=== PATIENT | male | born 1975 | race Two or more races ===

== ENCOUNTER 2017-03-18 06:28 | Day surgery (SDC) | payer OTHER ==
[~2017-03-18] VITALS: Ht 172.7 cm; Wt 88.5 kg
[2017-03-18] VITALS (12 sets, daily range): BP systolic 111–125; BP diastolic 63–75
[~2017-03-18 06:28] MED LIST: LEVOTHYROXINE25 MCG ORAL; ceFAZolin 1gm in D5W 55ml IVP ONE; celeBREX 200mg Cap **SURGERY PATIENTS ONLY ORAL ONE; oxyCONTIN 20mg tab ORAL ONE
[2017-03-18] MEDS ORDERED: celeBREX 200mg Cap **SURGERY PATIENTS ONLY ORAL ONE (07:17)
--- NOTE | 2017-03-18 07:24 | Operative Note - PDOC ---
Operative Note Operative Note Pre-op Diagnosis: right shoulder rct, impingement Procedure: right shoulder arthrscopy Post-op Diagnosis: same as pre-op plus Operative Findings: consistent w/pre-op dx studies Anesthesia: MAC Specimen: none Complications: none Condition: stable Estimated Blood Loss: none Implant(s) used?: No ZO HANNON March 18, 2017 07:24
--- NOTE | 2017-03-18 07:24 | Pre-Procedure Note/Attestation ---
Pre-Procedure Note/Attestation Complete Prior to Procedure Planned Procedure: right Procedure Narrative: shoulder arthrscopy, possible rct repair, sad Indications for Procedure Pre-Operative Diagnosis: right shoulder rct, impingement Attestation I attest that I discussed the nature of the procedure; its benefits; risks and complications; and alternatives (and the risks and benefits of such alternatives ), prior to the procedure, with the patient (or the patient's legal hospital insurance representative). I attest that, if there was a reasonable possibility of needing a blood transfusion, the patient (or the patient's legal hospital insurance representative) was given the [facility] standardized written summary, pursuant to the Eliot Ralf Blood Safety Act ([place] Health and Safety Code # 1645, as amended). I attest that I re-evaluated the patient just prior to the surgery and that there has been no change in the patient's H&P, except as documented below: ZO HANNON March 18, 2017 07:24
[2017-03-18] MEDS ORDERED: HYDROmorphone 1mg/ml Carpuject SUBQ PRN (07:30)
[2017-03-18] MEDS ORDERED: Norco 5mg/325mg tab ORAL PRN ×2 (07:30→09:15)
[2017-03-18] MEDS ORDERED: D5 1/2NS 1,000 ML IV SCH (07:30)
[2017-03-18] MEDS ORDERED: Tylenol #3 tab (300mg/30mg) ORAL PRN (07:30)
[2017-03-18] MEDS ORDERED: NS Irrig 1000ml ONE (08:00)
[2017-03-18] MEDS ORDERED: Propofol 10mg/ml 20ml IV ONE (08:00)
[2017-03-18] MEDS ORDERED: Lidocaine 1% MPF 10mg/ml 5ml ONE (08:00)
[2017-03-18] MEDS ORDERED: Alfentanil 2ml Inj ONE (08:00)
[2017-03-18] MEDS ORDERED: Dexamethasone 4mg/ml vial ONE (08:00)
[2017-03-18] MEDS ORDERED: LR 1000ml ONE (08:00)
[2017-03-18] MEDS ORDERED: Ketorolac 30mg Inj ONE (08:00)
[2017-03-18] MEDS ORDERED: Midazolam 2mg/2ml Inj ONE (08:00)
[2017-03-18] MEDS ORDERED: Ropivacaine 5mg/ml Vial 20ml INJ ONE (08:09)
[2017-03-18] MEDS ORDERED: EPINEPHrine 1mg/1ml Amp ONE (08:25)
[2017-03-18] MEDS ORDERED: Bupivacaine w/Epi 0.25% 30ml Vial INJ ONE (08:25)
[2017-03-18] MEDS ORDERED: LR 1000ml 1,000 ML IVLG SCH (09:04)
--- NOTE | 2017-03-18 09:10 | Anethesia Preoperative Eval ---
Anesthesia Pre-op PMH/ROS General Date of Evaluation: March 18, 2017 Time of Evaluation: 08:14 Anesthesiologist: Mikhail ASA Score: ASA 2 Mallampati Score Class I : Soft palate, uvula, fauces, pillars visible Class II: Soft palate, uvula, fauces visible Class III: Soft palate, base of uvula visible Class IV: Only hard plate visible Mallampati Classification: Class II Surgeon: Yung Diagnosis: R Shoulder Pain Surgical Procedure: R Shoulder Arthroscopy Anesthesia History: none Family History: no anesthesia problems Allergies: Coded Allergies: No Known Allergies (Unverified , 03/17/17) Medications: see eMAR Past Medical History Endocrine: Reports: hypothyroidism Other: obesity - BMI 30 Anesthesia Pre-op Phys. Exam Physician Exam Last Vital Signs Date Time Temp Pulse Resp B/P Pulse Ox O2 Delivery O2 Flow Rate FiO2 03/18/17 06:54 97.2 52 20 119/73 99 Room Air Constitutional: NAD Neurologic: CN 2-12 intact Cardiovascular: RRR Respiratory: CTA Gastrointestinal: S/NT/ND Airway Exam Mallampati Score: Class II MO: full ROM: full Teeth: intact Anesthesia Pre-op A/P Risk Assessment & Plan Assessment: ASA 2 Plan: GA, BIS, R Supraclavicular Block Status Change Before Surgery: No Pre-Antibiotics Dru Gram Ancef IV Given Within 1 Hr of Incision: Yes Time Given: 07:26 Abdiel Elizondo MD March 18, 2017 09:10
--- NOTE | 2017-03-18 09:11 | Immediate Post-Op Evaluation ---
Immediate Post-Op Evalulation Immediate Post-Op Evalulation Procedure: R Shoulder Arthroscopy Date of Evaluation: March 18, 2017 Time of Evaluation: 09:34 IV Fluids: 500 LR Blood Products: 0 Estimated Blood Loss: 7 Urinary Output: 0 Blood Pressure Systolic: 125 Blood Pressure Diastolic: 75 Pulse Rate: 75 Respiratory Rate: 16 O2 Sat by Pulse Oximetry: 100 Temperature (Fahrenheit): 97 Pain Score (1-10): 1 Nausea: No Vomiting: No Complications 0 Patient Status: awake, reacts, patent, none Hydration Status: adequate Dru Gram Ancef IV Given Within 1 Hr of Incision: Yes Time Given: 07:26 Abdiel Elizondo MD March 18, 2017 09:11
[2017-03-18] MEDS ORDERED: DiphenhydrAMINE 50mg/ml Inj IVP PRN (09:15)
[2017-03-18] MEDS ORDERED: Hydromorphone 0.5mg/0.5ml inj IVP PRN (09:15)
[2017-03-18] MEDS ORDERED: Midazolam 2mg/2ml Inj IVP PRN (09:15)
[2017-03-18] MEDS ORDERED: LORazepam Inj 2mg/ml 1ml IV PRN (09:15)
[2017-03-18] MEDS ORDERED: Atropine Inj 1mg/10ml Syr IV PRN (09:15)
[2017-03-18] MEDS ORDERED: Ketorolac 60mg Inj IV PRN (09:15)
[2017-03-18] MEDS ORDERED: Meperidine 25mg/0.5ml Inj IV PRN (09:15)
[2017-03-18] MEDS ORDERED: Norco 7.5mg/325mg tab ORAL PRN (09:15)
[2017-03-18] MEDS ORDERED: Metoclopramide 10mg/2ml Inj IVP PRN (09:15)
[2017-03-18] MEDS ORDERED: fentaNYL 100 mcg/2 mL IV PRN (09:15)
[2017-03-18] MEDS ORDERED: Oxycodone/Acetaminophen 5-325 ORAL PRN (09:15)
[2017-03-18] MEDS ORDERED: Ketorolac 30mg Inj IV PRN (09:15)
--- NOTE | 2017-03-18 09:25 | 48 Hour Post Anesthesia Eval ---
Post Anesthesia Evaluation Procedure: R Shoulder Arthroscopy Date of Evaluation: March 18, 2017 Time of Evaluation: 09:34 Blood Pressure Systolic: 117 0: 58 Pulse Rate: 61 Respiratory Rate: 16 Temperature (Fahrenheit): 98.2 O2 Sat by Pulse Oximetry: 100 Airway: patent Nausea: No Vomiting: No Pain Intensity: 1 Hydration Status: adequate Cardiopulmonary Status: Stable Mental Status/LOC: patient returned to baseline Follow-up Care/Observations: 0 Post-Anesthesia Complications: 0 Follow-up care needed: ready to discharge Abdiel Elizondo MD March 18, 2017 09:25
--- NOTE | 2017-03-18 13:17 | Operative Note - Dictated ---
DATE OF OPERATION: 03/18/2017 PREOPERATIVE DIAGNOSIS: 1. Right shoulder traumatic impingement syndrome. POSTOPERATIVE DIAGNOSIS: 1. Right shoulder traumatic impingement syndrome. PROCEDURES: 1. Right shoulder diagnostic arthroscopy. 2. Right shoulder subacromial decompression bursectomy with release of the coracoclavicular ligament. SURGEON: Mathieu Barragan M.D. ANESTHESIA: Interscalene with general. INDICATION FOR PROCEDURE: The patient is a pleasant 41-year-old gentleman, with progressive and continued right shoulder pain. He had evidence of impingement syndrome. He failed conservative treatment and elected to undergo right shoulder arthroscopy with subacromial decompression bursectomy. Risks, limitations, expectations and complications related to procedure were discussed in detail. All questions were addressed. DESCRIPTION OF PROCEDURE: An informed consent was obtained. The patient was brought to the operative room and placed under monitored interscalene and general anesthesia. The patient was then carefully placed in a beach-chair position. Right shoulder was prepped and draped in a sterile manner. Time-out was performed. Portal sites were injected with 0.25% Marcaine with epinephrine. Inferolateral stab incision then made. Trocar was introduced into the humeral joint. No significant chondral damage. The anterior ligament appeared intact while at the superior labral and rotator cuff, there was some tenderness along the rotator cuff, but no stephanie tear. The camera was then repositioned in the subacromial space. There was significant hypertrophic bursal tissue. Lateral working portal was established. Complete bursectomy was performed as soon as the acromion was identified. Chondroplasty was turned from lateral to medial and completed from posterior to anterior. Once that was done, the bursal side of the rotator cuff was evaluated and noted to be intact. At this point, the instruments removed. Portal sites were closed using 3-0 Monocryl sutures. Steri-Strips and a sterile dressing were applied. The patient was awoken and taken to recovery room with stable vital signs. ESTIMATED BLOOD LOSS: Minimal. COMPLICATIONS: None. SPECIMENS: None. IMPLANTS: None. Mathieu Barragan M.D. DR: Lianet JOB#: [id number] CC:
== END 2017-03-18 12:40 | disposition home or self-care (01) ==
LOC: SUR 06:28
DX: M75.41 Impingement syndrome of right shoulder (principal); E03.9 Hypothyroidism, unspecified; E66.9 Obesity, unspecified; Z68.30 Body mass index [BMI] 30.0-30.9, adult
CPT/HCPCS: 29822; J0171; J0690; J1100; J1885; J2250; J2405; J2704; J2795; J3490; J7120; 94003; 94150

== ENCOUNTER 2017-12-16 07:22 | Day surgery (SDC) | payer OTHER ==
[~2017-12-16] VITALS: Ht 172.7 cm; Wt 83.9 kg
[2017-12-16] VITALS (12 sets, daily range): BP systolic 96–121; BP diastolic 58–74
[~2017-12-16 07:22] MED LIST changes: -ceFAZolin 1gm in D5W 55ml IVP ONE; +ceFAZolin sod 1gm in NS 55ml IVPB ONE
[2017-12-16] MEDS ORDERED: Tylenol #3 tab (300mg/30mg) ORAL PRN (07:45)
[2017-12-16] MEDS ORDERED: D5 1/2NS 1,000 ML IV SCH (07:45)
[2017-12-16] MEDS ORDERED: HYDROmorphone 1mg/ml Carpuject SUBQ PRN (07:45)
[2017-12-16] MEDS ORDERED: Norco 5mg/325mg tab ORAL PRN (07:45)
--- NOTE | 2017-12-16 07:45 | Operative Note - PDOC ---
Operative Note Operative Note Pre-op Diagnosis: right shoulder ac arthrosis Procedure: right shoulder arthroscopy, ac resection Post-op Diagnosis: same as pre-op plus Operative Findings: consistent w/pre-op dx studies Anesthesia: general Specimen: none Complications: none Condition: stable Estimated Blood Loss: none Implant(s) used?: No ZO HANNON Dec 16, 2017 07:45
--- NOTE | 2017-12-16 07:45 | Pre-Procedure Note/Attestation ---
Pre-Procedure Note/Attestation Complete Prior to Procedure Planned Procedure: right Procedure Narrative: shoulder arthroscopy, ac joint resection Indications for Procedure Pre-Operative Diagnosis: right shoulder ac arthrosis Attestation I attest that I discussed the nature of the procedure; its benefits; risks and complications; and alternatives (and the risks and benefits of such alternatives ), prior to the procedure, with the patient (or the patient's legal digital media representative). I attest that, if there was a reasonable possibility of needing a blood transfusion, the patient (or the patient's legal digital media representative) was given the [facility] standardized written summary, pursuant to the Eliot Ralf Blood Safety Act ([place] Health and Safety Code # 1645, as amended). I attest that I re-evaluated the patient just prior to the surgery and that there has been no change in the patient's H&P, except as documented below: ZO HANNON Dec 16, 2017 07:44
--- NOTE | 2017-12-16 08:32 | Anethesia Preoperative Eval ---
Anesthesia Pre-op PMH/ROS General Date of Evaluation: Dec 16, 2017 Anesthesiologist: Duane ASA Score: ASA 2 Mallampati Score Class I : Soft palate, uvula, fauces, pillars visible Class II: Soft palate, uvula, fauces visible Class III: Soft palate, base of uvula visible Class IV: Only hard plate visible Mallampati Classification: Class II Surgeon: Jackson Diagnosis: Right shoulder derangement Surgical Procedure: Right shoulder arthroscopy with subacromial decompression Anesthesia History: none Family History: no anesthesia problems Allergies: Coded Allergies: No Known Allergies (Unverified , 03/17/17) Medications: see eMAR Past Medical History Cardiovascular: Denies: HTN, CAD, CT, valve dz, arrhythmia, other Pulmonary: Denies: asthma, COPD, BARB, other Gastrointestinal/Genitourinary: Denies: GERD, CRI, ESRD, other Neurologic/Psychiatric: Denies: dementia, CVA, depression/anxiety, TIA, other Endocrine: Reports: hypothyroidism, Denies: DM, steroids, other HEENT: Denies: cataract (L), cataract (R), glaucoma, MECHOOPDA (L), MECHOOPDA (R), other Hematology/Immune: Denies: anemia, DVT, bleeding disorder, other Musculoskeletal/Integumentary: Denies: OA, RA, DJD, DDD, edema, other PSxH Narrative: Right rotator cuff repair Anesthesia Pre-op Phys. Exam Physician Exam see chart Constitutional: NAD Cardiovascular: RRR Respiratory: CTA Airway Exam Mallampati Score: Class II MO: full ROM: full Teeth: intact Anesthesia Pre-op A/P Labs see chart Studies Pre-op Studies: EKG - sr Risk Assessment & Plan Assessment: ASA II Plan: GA, Right interscalene block Status Change Before Surgery: No Pre-Antibiotics Drug: Ancef 1g Given Within 1 Hr of Incision: Yes Time Given: 10:15 LAURIE CRUZ M.D. Dec 16, 2017 08:32
[2017-12-16] MEDS ORDERED: LR 1000ml 1,000 ML IVLG SCH (08:33)
[2017-12-16] MEDS ORDERED: DiphenhydrAMINE 50mg/ml Inj IVP PRN (08:45)
[2017-12-16] MEDS ORDERED: Ketorolac 30mg Inj IV PRN (08:45)
[2017-12-16] MEDS ORDERED: fentaNYL 100 mcg/2 mL IV PRN (08:45)
[2017-12-16] MEDS ORDERED: Hydromorphone 0.5mg/0.5ml inj IVP PRN (08:45)
[2017-12-16] MEDS ORDERED: celeBREX 200mg Cap **SURGERY PATIENTS ONLY ORAL ONE (09:06)
[2017-12-16] MEDS ORDERED: Ropivacaine 5mg/ml Vial 30ml INJ ONE (09:25)
[2017-12-16] MEDS ORDERED: Bupivacaine 0.25% Inj 30ml INJ ONE (09:25)
[2017-12-16] MEDS ORDERED: fentaNYL 100 mcg/2 mL IV ONE (10:00)
[2017-12-16] MEDS ORDERED: Zemuron 50mg/5ml Inj IV ONE (10:00)
[2017-12-16] MEDS ORDERED: LR 1000ml ONE (10:00)
[2017-12-16] MEDS ORDERED: Lidocaine 1% MPF 10mg/ml 5ml ONE (10:00)
[2017-12-16] MEDS ORDERED: Metoclopramide 10mg/2ml Inj ONE (10:00)
[2017-12-16] MEDS ORDERED: Ketorolac 30mg Inj ONE (10:00)
[2017-12-16] MEDS ORDERED: Midazolam 2mg/2ml Inj ONE (10:00)
[2017-12-16] MEDS ORDERED: NS Irrig 1000ml ONE (10:00)
[2017-12-16] MEDS ORDERED: Propofol 200mg/20ml IV ONE (10:00)
[2017-12-16] MEDS ORDERED: EPINEPHrine 1mg/1ml Amp IRRIG ONE (10:41)
--- NOTE | 2017-12-16 10:45 | 48 Hour Post Anesthesia Eval ---
Post Anesthesia Evaluation Procedure: Right shoulder arthroscopy and subacromial decompression Date of Evaluation: Dec 16, 2017 Time of Evaluation: 13:15 Blood Pressure Systolic: 107 0: 69 Pulse Rate: 61 Respiratory Rate: 15 Temperature (Fahrenheit): 98 O2 Sat by Pulse Oximetry: 100 Airway: patent Nausea: No Vomiting: No Pain Intensity: 0 Hydration Status: adequate Cardiopulmonary Status: at baseline Mental Status/LOC: patient returned to baseline Post-Anesthesia Complications: 0 Follow-up care needed: ready to discharge LAURIE CRUZ M.D. Dec 16, 2017 10:45
--- NOTE | 2017-12-16 10:45 | Immediate Post-Op Evaluation ---
Immediate Post-Op Evalulation Immediate Post-Op Evalulation Procedure: Right shoulder arthroscopy and subacromial decompression Date of Evaluation: Dec 16, 2017 Time of Evaluation: 12:16 IV Fluids: 1L Blood Products: 0 Estimated Blood Loss: 5 Urinary Output: 0 Blood Pressure Systolic: 96 Blood Pressure Diastolic: 53 Pulse Rate: 55 Respiratory Rate: 16 O2 Sat by Pulse Oximetry: 97 Temperature (Fahrenheit): 97.1 Pain Score (1-10): 0 Nausea: No Vomiting: No Complications 0 Patient Status: awake, reacts, patent, none Hydration Status: adequate Drug: Ancef 1g Given Within 1 Hr of Incision: Yes Time Given: 10:15 LAURIE CRUZ M.D. Dec 16, 2017 10:45
[2017-12-16] MEDS ORDERED: EPINEPHrine 1mg/1ml Amp ONE (11:41)
--- NOTE | 2017-12-19 19:15 | Operative Note - Dictated ---
DATE OF OPERATION: 12/16/2017 PREOPERATIVE DIAGNOSIS: Right shoulder AC joint arthropathy/impingement. POSTOPERATIVE DIAGNOSIS: Right shoulder AC joint arthropathy/impingement. PROCEDURE: 1. Right shoulder diagnostic arthroscopy. 2. Right shoulder AC joint resection. SURGEON: Mathieu Barragan M.D. ANESTHESIA: Interscalene with general. INDICATION FOR PROCEDURE: This is a pleasant 42-year-old gentleman, who underwent right shoulder arthroscopic subacromial decompression and bursectomy. In the postop period, he developed significant arthrofibrosis. Apparently, his physical therapy and rehab helped him to regain his range of motion and strength. He still now has more discomfort along the AC joint. He had positive cortisone injection in the AC joint which did provide some temporary relief, but had persistent symptoms given that he had continued issues and localized along the AC joint, we elected to undergo right shoulder arthroscopic AC joint resection. Risks, limitations, expectations, complication of the procedure were discussed in detail. All questions were addressed. DESCRIPTION OF PROCEDURE: An informed consent was obtained. The patient was brought to the operative room and placed supine under monitored anesthesia control. The patient had an interscalene anesthetic placed. The patient was then carefully placed in beach-chair position. Right shoulder was prepped and draped in sterile manner. Time-out was performed. The previous portal sites were injected with 0.25% Marcaine with epinephrine. Inferolateral stab incision was then made. Trocar was introduced into the glenohumeral joint. Systematic tour of the shoulder was performed. There was no significant chondral damage. Labrum appeared to be intact along with the articular side of the rotator cuff. The camera was repositioned in the subacromial space. There was hypertrophic bursal tissue which was debrided to better visualize the acromion. Once the acromion was identified, it was followed medially to the AC joint. A spinal needle was then placed through the AC joint for visualization. The undersurface of the distal clavicle was well visualized. A camera was placed in the lateral portal and resection of the distal clavicle was performed from posterior and anterior. Once that was done, the camera was placed through the anterior portal to make sure that there was adequate decompression of the superior and posterior bone without violating the ligament. At this point, the camera was removed. Portal sites were closed using 3-0 Monocryl suture. Steri-Strips and sterile dressing were applied. The patient was awoken and taken to recovery room with stable vital signs. ESTIMATED BLOOD LOSS: None. COMPLICATION: None. SPECIMENS: None. IMPLANTS: None. Mathieu Barragan M.D. DR: David JOB#: [id number] CC: MARYJANE
== END 2017-12-16 14:20 | disposition home or self-care (01) ==
LOC: SUR 07:22
DX: M75.41 Impingement syndrome of right shoulder (principal); M19.011 Primary osteoarthritis, right shoulder; Z98.1 Arthrodesis status
CPT/HCPCS: 29824; J0171; J0690; J1885; J2250; J2405; J2704; J2765; J2795; J3010; J3490; J7120; 94003; 94150

== ENCOUNTER 2018-03-17 05:34 | Day surgery (SDC) | payer OTHER ==
[2018-03-17] VITALS (8 sets, daily range): BP systolic 111–147; BP diastolic 69–88
[~2018-03-17] VITALS: Ht 175.3 cm; Wt 83.9 kg
[~2018-03-17 05:34] MED LIST changes: -ceFAZolin sod 1gm in NS 55ml IVPB ONE; -celeBREX 200mg Cap **SURGERY PATIENTS ONLY ORAL ONE; -oxyCONTIN 20mg tab ORAL ONE
[2018-03-17] MEDS ORDERED: ceFAZolin sod 1 GM in D5W 110 ML IVPB ONE (06:00)
[2018-03-17] MEDS ORDERED: celeBREX 100mg Cap **SURGERY PATIENTS ONLY ORAL ONE (06:00)
[2018-03-17] MEDS ORDERED: oxyCONTIN 20mg tab ORAL ONE (06:00)
[2018-03-17] MEDS ORDERED: LR 1000ml 1,000 ML IVLG SCH ×2 (06:17)
--- NOTE | 2018-03-17 06:19 | Anethesia Preoperative Eval ---
Anesthesia Pre-op PMH/ROS General Date of Evaluation: March 17, 2018 Time of Evaluation: 06:56 Anesthesiologist: Mikhail ASA Score: ASA 3 Mallampati Score Class I : Soft palate, uvula, fauces, pillars visible Class II: Soft palate, uvula, fauces visible Class III: Soft palate, base of uvula visible Class IV: Only hard plate visible Mallampati Classification: Class II Surgeon: Yung Diagnosis: R Shoulder Pain Surgical Procedure: R Shoulder Revision Anesthesia History: none Family History: no anesthesia problems Allergies: Coded Allergies: No Known Allergies (Unverified , 03/16/18) Medications: see eMAR Past Medical History Endocrine: Reports: hypothyroidism PSxH Narrative: R Shoulder Arthroscopy 2018 Anesthesia Pre-op Phys. Exam Physician Exam Last Vital Signs Date Time Temp Pulse Resp B/P (MAP) Pulse Ox O2 Delivery O2 Flow Rate FiO2 03/17/18 06:10 97.6 52 20 111/69 98 Room Air 97.6 Constitutional: NAD Neurologic: CN 2-12 intact Cardiovascular: RRR Respiratory: CTA Gastrointestinal: S/NT/ND Airway Exam Mallampati Score: Class II MO: full ROM: full Teeth: intact Anesthesia Pre-op A/P Risk Assessment & Plan Assessment: ASA 2 Plan: GA, Supraclavicular Block, BIS Status Change Before Surgery: No Pre-Antibiotics Dru Grams Ancef IV Given Within 1 Hr of Incision: Yes Time Given: 07:16 Abdiel Elizondo MD March 17, 2018 06:19
[2018-03-17] MEDS ORDERED: HYDROcodone/Acetamin 7.5/325 tab ORAL PRN ×2 (06:30)
[2018-03-17] MEDS ORDERED: Atropine Inj 1mg/10ml Syr IV PRN ×2 (06:30)
[2018-03-17] MEDS ORDERED: Midazolam 2mg/2ml Inj IVP PRN ×2 (06:30)
[2018-03-17] MEDS ORDERED: oxyCODONE HCL/Acetaminophen 5/325mg ORAL PRN ×2 (06:30)
[2018-03-17] MEDS ORDERED: Metoclopramide 10mg/2ml Inj IVP PRN ×2 (06:30)
[2018-03-17] MEDS ORDERED: Norco 5mg/325mg tab ORAL PRN ×3 (06:30→21:01)
[2018-03-17] MEDS ORDERED: fentaNYL 100 mcg/2 mL IV PRN ×2 (06:30)
[2018-03-17] MEDS ORDERED: LORazepam Inj 2mg/ml 1ml IV PRN ×2 (06:30)
[2018-03-17] MEDS ORDERED: Labetalol 5mg/ml 20ml vial IV PRN ×2 (06:30)
[2018-03-17] MEDS ORDERED: Hydromorphone 0.5mg/0.5ml inj IVP PRN ×2 (06:30)
[2018-03-17] MEDS ORDERED: Ketorolac 30mg Inj IV PRN ×4 (06:30)
[2018-03-17] MEDS ORDERED: DiphenhydrAMINE 50mg/ml Inj IVP PRN ×2 (06:30)
[2018-03-17] MEDS ORDERED: Ropivacaine 5mg/ml Vial 30ml INJ ONE (06:45)
[2018-03-17] MEDS ORDERED: Propofol 200mg/20ml IV ONE (06:45)
[2018-03-17] MEDS ORDERED: Sodium Chloride 10ml vial INJ ONE (06:45)
[2018-03-17] MEDS ORDERED: Lidocaine 1% MPF 10mg/ml 5ml ONE (06:45)
[2018-03-17] MEDS ORDERED: Dexamethasone 4mg/ml vial ONE (06:45)
[2018-03-17] MEDS ORDERED: Alfentanil 2ml Inj ONE (06:46)
--- NOTE | 2018-03-17 06:48 | Pre-Procedure Note/Attestation ---
Pre-Procedure Note/Attestation Complete Prior to Procedure Planned Procedure: right Procedure Narrative: shoulder revision ac joint resection Indications for Procedure Pre-Operative Diagnosis: right shoulder ac arthropathy Attestation I attest that I discussed the nature of the procedure; its benefits; risks and complications; and alternatives (and the risks and benefits of such alternatives ), prior to the procedure, with the patient (or the patient's legal architectural representative). I attest that, if there was a reasonable possibility of needing a blood transfusion, the patient (or the patient's legal architectural representative) was given the [facility] standardized written summary, pursuant to the [place] Blood Safety Act ([place] Health and Safety Code # 1645, as amended). I attest that I re-evaluated the patient just prior to the surgery and that there has been no change in the patient's H&P, except as documented below: Mathieu Barragan MD March 17, 2018 06:48
--- NOTE | 2018-03-17 06:49 | Operative Note - PDOC ---
Operative Note Operative Note Pre-op Diagnosis: right shoulder ac arthropathy Procedure: see op report Operative Findings: consistent w/pre-op dx studies Anesthesia: regional Specimen: none Complications: none Condition: stable Estimated Blood Loss: none Implant(s) used?: No Mathieu Barragan MD March 17, 2018 06:49
[2018-03-17] MEDS ORDERED: EPINEPHrine 1mg/1ml Amp ONE ×2 (06:56→07:06)
[2018-03-17] MEDS ORDERED: D5 1/2NS 1,000 ML IV SCH (07:00)
[2018-03-17] MEDS ORDERED: NS Irrig 4000ml IRRIG ONE (07:00)
[2018-03-17] MEDS ORDERED: LR 1000ml ONE (07:00)
[2018-03-17] MEDS ORDERED: Bupivacaine 0.25% Inj 30ml INJ ONE (07:06)
[2018-03-17] MEDS ORDERED: Glycopyrrolate 0.2mg/ml 1ml Vial ONE (08:22)
--- NOTE | 2018-03-17 09:14 | Immediate Post-Op Evaluation ---
Immediate Post-Op Evalulation Immediate Post-Op Evalulation Procedure: R Shoulder Revision Date of Evaluation: March 17, 2018 Time of Evaluation: 09:24 IV Fluids: 600 LR Blood Products: 0 Estimated Blood Loss: 10 Urinary Output: 0 Blood Pressure Systolic: 147 Blood Pressure Diastolic: 88 Pulse Rate: 73 Respiratory Rate: 16 O2 Sat by Pulse Oximetry: 100 Temperature (Fahrenheit): 97.6 Pain Score (1-10): 0 Nausea: No Vomiting: No Complications 0 Patient Status: awake, reacts, patent, none Hydration Status: adequate Dru Grams Ancef IV Given Within 1 Hr of Incision: Yes Time Given: 07:16 Abdiel Elizondo MD March 17, 2018 09:14
--- NOTE | 2018-03-17 09:15 | 48 Hour Post Anesthesia Eval ---
Post Anesthesia Evaluation Procedure: R Shoulder Revision Date of Evaluation: March 17, 2018 Time of Evaluation: 11:32 Blood Pressure Systolic: 123 0: 76 Pulse Rate: 67 Respiratory Rate: 18 Temperature (Fahrenheit): 98.2 O2 Sat by Pulse Oximetry: 100 Airway: patent Nausea: No Vomiting: No Pain Intensity: 0 Hydration Status: adequate Cardiopulmonary Status: Stable Mental Status/LOC: patient returned to baseline Follow-up Care/Observations: 0 Post-Anesthesia Complications: 0 Follow-up care needed: ready to discharge Abdiel Elizondo MD March 17, 2018 09:15
--- NOTE | 2018-03-17 12:00 | Operative Note - Dictated ---
DATE OF OPERATION: 03/17/2018 PREOPERATIVE DIAGNOSIS: Failed AC joint resection. POSTOPERATIVE DIAGNOSIS: Failed AC joint resection. PROCEDURE: 1. Right shoulder diagnostic arthroscopy. 2. Revision, right AC joint resection. SURGEON: Mathieu Barragan M.D. ANESTHESIA: Interscalene with general. INDICATION FOR PROCEDURE: The patient is a pleasant gentleman, who underwent subacromial decompression and bursectomy. Subsequently, he had significant AC joint pain. He underwent AC joint resection. There was some continued pain. He was indicated to undergo revision of AC joint resection. Risks, limitations, expectations, and complications of the procedure were discussed in detail. All questions were addressed. DESCRIPTION OF PROCEDURE: After informed consent was obtained, the patient was brought to the operating room and placed supine under interscalene with general anesthesia. Once the trocar was introduced into the glenohumeral joint, systematic tour of the shoulder was performed. There was no significant chondral damage. The anterior labrum appeared intact along with biceps tendon, the articular surface of the subscap and supraspinatus and infraspinatus. The camera was repositioned in the subacromial space. Lateral working portal was established. Bursectomy was performed. The medial border of the acromion was identified. Using intraoperative fluoroscopy, the AC joint resection was planned out. The was then placed through the anterior portal. Using fluoroscopy intraoperatively, the distal clavicle was resected. Once adequate resection was performed, the AC joint was probed to make sure there were no bone fragments still present. Once that was completed, the ports were removed. Portal sites were closed with 3-0 Monocryl sutures. Steri-Strips and a sterile dressing were applied. The patient was awoken and taken to recovery room with stable vital signs. ESTIMATED BLOOD LOSS: None. COMPLICATIONS: None. SPECIMENS: None. IMPLANTS: None. Mathieu Barragan M.D. DR: David JOB#: [id number] CC:
--- NOTE | 2018-03-17 13:48 | Diagnostic Imaging Report ---
Indication: Pain, intraoperative Technique: Intraoperative images Comparison: none Findings: Intraoperative images document increased resection of the distal left clavicle Impression: Intraoperative imaging, as described
[2018-03-17] MEDS ORDERED: Tylenol #3 tab (300mg/30mg) ORAL PRN (21:01)
== END 2018-03-17 11:40 | disposition home or self-care (01) ==
LOC: SUR 05:34
DX: M25.511 Pain in right shoulder (principal); Z98.890 Other specified postprocedural states; E03.9 Hypothyroidism, unspecified
CPT/HCPCS: 29824; 73020; 76001; J0171; J0690; J1100; J2250; J2405; J2704; J2795; J3490; J7120; 94003; 94150